=== PATIENT | female | born 1960 ===

== ENCOUNTER 2018-06-04 09:26 | Emergency (ER) | payer OTHER ==
[2018-06-04 09:37] VITALS: TEMP 98.1
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
[2018-06-04 12:58] VITALS: BP 140/70; PULSE 76; RESP 18; O2SAT 99
--- NOTE | 2018-06-04 15:06 | RAD ---
Date of service: 06/04/2018 PROCEDURE: Left Knee Radiographs. HISTORY: Pain. COMPARISON: Correlation made with concurrent radiographs right knee. FINDINGS: BONES: No evidence of acute displaced fracture nor dislocation. The osseous structures appear intact.. JOINTS: Joint spaces relatively preserved. There is a small anterior superior patella enthesophyte. JOINT EFFUSION: Suspect small suprapatellar joint effusion. OTHER FINDINGS: None. IMPRESSION: No acute fractures. Suspect small suprapatellar joint effusion.
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
== END 2018-06-04 12:45 | disposition home or self-care (01) ==
LOC: H.ER 09:26
DX: S63.501A Unspecified sprain of right wrist, initial encounter (principal); S29.9XXA Unspecified injury of thorax, initial encounter; S80.00XA Contusion of unspecified knee, initial encounter; V43.62XA Car passenger injured in collision with other type car in traffic accident, initial encounter; Y92.410 Unspecified street and highway as the place of occurrence of the external cause